=== PATIENT | male | born 1965 | race Caucasian/White ===

== ENCOUNTER 2018-06-13 14:47 | Emergency (ER) | payer OTHER ==
[~2018-06-13] VITALS: Ht 175.3 cm; Wt 90.9 kg
[2018-06-13 14:53] VITALS: BP 126/79
[2018-06-13] MEDS ORDERED: dexamethasone sod phosphate 10mg/ml inj IM STA (15:08)
[2018-06-13] MEDS ORDERED: triamcinolone acetonide 40mg/ml inj IM ONE (15:10)
== END 2018-06-13 15:40 | disposition home or self-care (01) ==
LOC: ER 14:48
DX: L23.7 Allergic contact dermatitis due to plants, except food (principal)
CPT/HCPCS: 96372; 99284; J1100; J3301

== ENCOUNTER 2018-06-17 18:47 | Emergency (ER) | payer OTHER ==
[~2018-06-17] VITALS: Ht 177.8 cm; Wt 83.0 kg
[2018-06-17 18:54] VITALS: BP 136/71
[2018-06-17] MEDS ORDERED: METH4TAB3 PO (19:59)
== END 2018-06-17 20:19 | disposition home or self-care (01) ==
LOC: ER 18:47
DX: L23.9 Allergic contact dermatitis, unspecified cause (principal)
CPT/HCPCS: 99283

== ENCOUNTER 2018-10-30 17:13 | Emergency (ER) | payer OTHER ==
[~2018-10-30] VITALS: Ht 175.3 cm; Wt 89.9 kg
[~2018-10-30 17:13] MED LIST: METH4TAB3 PO
[2018-10-30 17:40] VITALS: BP 153/96
== END 2018-10-30 19:44 | disposition home or self-care (01) ==
LOC: ER 17:13
DX: S41.111A Laceration without foreign body of right upper arm, initial encounter (principal); S50.01XA Contusion of right elbow, initial encounter; S20.319A Abrasion of unspecified front wall of thorax, initial encounter; W22.8XXA Striking against or struck by other objects, initial encounter; Y93.89 Activity, other specified; Y92.89 Other specified places as the place of occurrence of the external cause; Y99.8 Other external cause status
CPT/HCPCS: 73080; 99283